=== PATIENT | female | born 1975 | race Two or more races ===

== ENCOUNTER → 2016-07-08 | Outpatient (CLI) | payer BC ==
--- NOTE | 2016-07-08 13:02 | RAD ---
DATE: 07/08/2016 EXAM: DIGITAL DIAGNOSTIC BILATERAL HISTORY: Follow-up right breast opacity, left breast screening COMPARISON: 07/05/2014, 06/24/2014 This study was interpreted with the benefit of Computerized Aided Detection (CAD). FINDINGS: The breasts are heterogeneously dense. No new or enlarging breast densities are seen. Minimal benign type calcifications are noted. No suspicious microcalcifications have developed. Benign-appearing lymph node type densities are noted in the axillary regions. IMPRESSION: There is no mammographic evidence of malignancy in either breast. BI-RADS CATEGORY: 2 BENIGN FINDING(S) RECOMMENDED FOLLOW-UP: 12M 12 MONTH FOLLOW-UP PQRS compliance statement: Patient information was entered into a reminder system with a target due date for the next mammogram. Mammography is a sensitive method for finding small breast cancers, but it does not detect them all and is not a substitute for careful clinical examination. A negative mammogram does not negate a clinically suspicious finding and should not result in delay in biopsying a clinically suspicious abnormality. "Our facility is accredited by the [employer] Mammography [employer]."
== END | disposition home or self-care (01) ==
LOC: KCIC MAMMO 11:30
PROVIDERS: ATTEND Obstetrics & Gynecology
DX: N63 Unspecified lump in breast (principal)
CPT/HCPCS: G0204; 77066

== ENCOUNTER → 2017-07-19 | Outpatient (CLI) | payer OTHER | END | disposition home or self-care (01) | LOC: KCIC MAMMO 09:45 | DX: Z12.31 Encounter for screening mammogram for malignant neoplasm of breast (principal) | CPT/HCPCS: 77067 ==

== ENCOUNTER → 2018-08-07 | Outpatient (CLI) | payer OTHER ==
--- NOTE | 2018-08-07 15:49 | KCIC ---
Bilateral digital screening mammograms: Reason for examination: Routine screening. Comparison is made to previous studies dated 07/19/2017 and 07/08/2016 Interpretation was made with the benefit of CAD. The skin and nipples show no abnormalities. No abnormal axillary lymph nodes are seen. The breast parenchyma is extremely dense. (Breast density: Category D.) There continues to be a small nodular parenchymal density medially in the right breast on cc view. There is also some asymmetric parenchymal density posterior superiorly in the left breast which is unchanged. There are no new dominant masses, suspicious calcifications or architectural distortion. Impression: No evidence of malignancy. Recommend routine screening. Your patient's mammogram demonstrates that she has dense breast tissue (breast density category C or D), which could hide abnormalities, and if she has other risk factors for breast cancer that have been identified, she might benefit from supplemental screening tests that may be suggested by you as her ordering physician. Dense breast tissue, in and of itself, is a relatively common condition. Therefore, this information is not provided to cause undue concern, but rather to raise your awareness and to promote discussion with your patient regarding the presence of other risk factors, in addition to dense breast tissue. Your patient's mammography results will be sent to her. BI-RAD Category 2: Benign. "Our facility is accredited by the [employer] Mammography [employer]." This patient's information has been entered into a reminder system for the patient to be notified with the results of her examination and a target date for the next mammogram. Electronically signed by: Mendy Duggan MD (08/07/2018 3:46 PM) [id number]
== END | disposition home or self-care (01) ==
LOC: KCIC MAMMO 11:51
PROVIDERS: ATTEND Obstetrics & Gynecology
DX: R92.2 Inconclusive mammogram (principal); Z12.31 Encounter for screening mammogram for malignant neoplasm of breast
CPT/HCPCS: 77067

== ENCOUNTER 2018-09-14 14:59 | Emergency (ER) | payer SELFPAY ==
[~2018-09-14] VITALS: Ht 160 cm; Wt 79.4 kg
[2018-09-14 15:20] VITALS: BP 145/65
--- NOTE | 2018-09-14 15:23 | PHYS DOC ---
Past Medical History Additional Information: non smoker Adult General Chief Complaint Chief Complaint: KNEE INJURY HPI HPI Patient is a 42 year old female presents with right knee pain on the medial size that has been ongoing intermittently for 2 weeks. This started happening after she was working on her yard. The patient has been wearing a brace at home, takes meloxicam daily for her tendinitis in her elbow but no other interventions were performed. The patient rates her pain as 5 out of 10. The character the pain is that it pops. Review of Systems Review of Systems Constitutional: Denies fever or chills [] Eyes: Denies change in visual acuity, redness, or eye pain [] HENT: Denies nasal congestion or sore throat [] Respiratory: Denies cough or shortness of breath [] Cardiovascular: No additional information not addressed in HPI [] GI: Denies abdominal pain, nausea, vomiting, bloody stools or diarrhea [] : Denies dysuria or hematuria [] Musculoskeletal: Denies back pain or joint pain with exception of knee pain. Integument: Denies rash or skin lesions [] Neurologic: Denies headache, focal weakness or sensory changes [] Endocrine: Denies polyuria or polydipsia [] Complete systems were reviewed and found to be within normal limits, except as documented in this note. Allergies Allergies Allergies Coded Allergies Type Severity Reaction Last Updated Verified pollen extracts Allergy Unknown 09/14/18 Yes Physical Exam Physical Exam Constitutional: Well developed, well nourished, no acute distress, non-toxic appearance. [] HENT: Normocephalic, atraumatic, bilateral external ears normal, oropharynx moist, no oral exudates, nose normal. [] Eyes: PERRLA, EOMI, conjunctiva normal, no discharge. [] Neck: Normal range of motion, no tenderness, supple, no stridor. [] Cardiovascular:Heart rate regular rhythm, no murmur [] Lungs & Thorax: Bilateral breath sounds clear to auscultation [] Abdomen: Bowel sounds normal, soft, no tenderness, no masses, no pulsatile masses. [] Skin: Warm, dry, no erythema, no rash. [] Back: No tenderness, no CVA tenderness. [] Extremities: No tenderness with exception of R knee, no cyanosis, no clubbing, ROM intact, no edema. [] Neurologic: Alert and oriented X 3, normal motor function, normal sensory function, no focal deficits noted. [] Psychologic: Affect normal, judgement normal, mood normal. [] Current Patient Data Vital Signs Vital Signs Date Time Temp Pulse Resp B/P (MAP) Pulse Ox O2 Delivery O2 Flow Rate FiO2 09/14/18 15:20 98.7 77 18 145/65 (91) 96 Room Air 98.7 EKG EKG [] Radiology/Procedures Radiology/Procedures []PATIENT: HENRIQUE QUINTEROSACCOUNT: [id number]#: [id number] : 1975 LOCATION: ER AGE: 42 SEX: F EXAM STATUS: REG ER ORD. PHYSICIAN: GURVINDER ESCOBAR APRN REASON: pain medial to patella from mowing grass today PROCEDURE: KNEE RIGHT 3V Three-view right knee study Clinical indications: Medial right knee pain extending to the patella after mowing grass today. FINDINGS: No acute fracture or dislocation or lytic process is evident. Mild degenerative joint space narrowing and spurring of the medial tibiofemoral joint compartment is seen. No significant right knee joint effusion is seen radiographically. IMPRESSION: No acute osseous abnormality. 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 Electronically signed by: Taiwo Resendez MD (09/14/2018 3:47 PM) [id number] Course & Med Decision Making Course & Med Decision Making Pertinent Labs and Imaging studies reviewed. (See chart for details) Will get an x-ray of the knee and then refer to orthopedics. Patient is agreeable. xray is negative. Will refer to orthopedics. Dragon Disclaimer Dragon Disclaimer This electronic medical record was generated, in whole or in part, using a voice recognition dictation system. Departure Departure Impression: Primary Impression: Knee pain, acute Disposition: 01 HOME, SELF-CARE Condition: STABLE Referrals: GURVINDER SWEET MD (PCP) FRITZ NG MD Patient Instructions: Knee Pain Additional Instructions: Please follow up with your primary care doctor as needed. Return to ER as needed. Follow up with ortho if pain continues for further workup. Problem Qualifiers Primary Impression: Knee pain, acute Laterality: right Qualified Codes: M25.561 - Pain in right knee GURVINDER ESCOBAR APRN Sep 14, 2018 15:23
--- NOTE | 2018-09-14 15:49 | RAD ---
Three-view right knee study Clinical indications: Medial right knee pain extending to the patella after mowing grass today. FINDINGS: No acute fracture or dislocation or lytic process is evident. Mild degenerative joint space narrowing and spurring of the medial tibiofemoral joint compartment is seen. No significant right knee joint effusion is seen radiographically. IMPRESSION: No acute osseous abnormality. 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 Electronically signed by: Taiwo Resendez MD (09/14/2018 3:47 PM) [id number]
== END 2018-09-14 16:10 | disposition home or self-care (01) ==
LOC: ER 14:59
DX: M25.561 Pain in right knee (principal); Z91.09 Other allergy status, other than to drugs and biological substances
CPT/HCPCS: 73562; 99284

== ENCOUNTER → 2018-10-05 | Outpatient (CLI) | payer OTHER ==
[2018-09-14 15:20] VITALS: BP 145/65
--- NOTE | 2018-10-06 08:09 | KCIC ---
Examination: Examination: MRI of the right knee without contrast HISTORY: History of right knee pain Technique: Multiplanar, multisequence MR imaging of the right knee was performed without contrast FINDINGS: The anterior cruciate ligament, posterior cruciate ligament appear intact. There is mild increased horizontal signal identified body and posterior horn of the medial meniscus likely horizontal degenerative cleavage tear. There is subtle blunting of the body of the medial meniscus probably a small radial tear with minimal medial extrusion of the medial meniscus. The lateral meniscus appears intact. The extensor mechanism is intact. The medial collateral ligament is intact. Lateral collateral ligamentous complex including the fibular collateral ligament, biceps femoris tendon, popliteus tendon appear intact. Small knee joint effusion is identified. The medial retinaculum, lateral retinaculum appear intact. There is deep fissuring of cartilage identified in the medial compartment. The medial retinaculum, lateral retinaculum appear intact. Moderate joint space loss identified in the medial compartment. There is mild joint space loss identified in the lateral compartment femoral compartments. Small knee joint effusion. IMPRESSION: 1. Increased horizontal ho signal identified in the medial meniscus likely horizontal cleavage tear with questionable subtle blunting of the body of the medial meniscus with minimal extrusion of the medial meniscus medially possibly a radial tear. 2. Grade II chondromalacia medial compartment. 3. Tricompartmental degenerative changes most in the medial compartment. 4. Small knee joint effusion. Electronically signed by: Heath Rush MD (10/06/2018 8:06 AM) [id number]
== END | disposition home or self-care (01) ==
LOC: KCIC MRI 15:56
PROVIDERS: ATTEND Orthopaedic Surgery
DX: M17.11 Unilateral primary osteoarthritis, right knee (principal); M94.261 Chondromalacia, right knee; M25.461 Effusion, right knee
CPT/HCPCS: 73721

== ENCOUNTER → 2019-11-23 | Outpatient (CLI) | payer OTHER ==
--- NOTE | 2019-11-23 16:24 | KCIC ---
Bilateral digital screening mammograms: Reason for examination: Routine screening. Comparison is made to previous studies dated back to 07/08/2016. Interpretation was made with the benefit of CAD. The skin and nipples show no abnormalities. No abnormal axillary lymph nodes are seen. The breast parenchyma is extremely dense. (Breast density: Category D.) There continues be a small nodule medially in the right breast seen just on cc view which is stable. There is however suggestion of a small nodular density located centrally at the 1:00 B position of the left breast. Further evaluation with coned compression views and ultrasound is recommended. There are no other dominant masses, suspicious calcifications or architectural distortion. Impression: Possible small nodular density developing at the 1:00 B position centrally in the left breast. Recommend further evaluation with coned compression views and ultrasound. Your patient's mammogram demonstrates that she has dense breast tissue (breast density category C or D), which could hide abnormalities, and if she has other risk factors for breast cancer that have been identified, she might benefit from supplemental screening tests that may be suggested by you as her ordering physician. Dense breast tissue, in and of itself, is a relatively common condition. Therefore, this information is not provided to cause undue concern, but rather to raise your awareness and to promote discussion with your patient regarding the presence of other risk factors, in addition to dense breast tissue. Your patient's mammography results will be sent to her. BI-RAD Category 0: Incomplete. Needs additional imaging evaluation. "Our facility is accredited by the [employer] Mammography Program." This patient's information has been entered into a reminder system for the patient to be notified with the results of her examination and a target date for the next mammogram. Electronically signed by: Mendy Duggan MD (11/23/2019 4:21 PM) [id number]
== END | disposition home or self-care (01) ==
LOC: KCIC MAMMO 10:38
PROVIDERS: ATTEND Obstetrics & Gynecology
DX: Z12.31 Encounter for screening mammogram for malignant neoplasm of breast (principal); N64.89 Other specified disorders of breast
CPT/HCPCS: 77067

== ENCOUNTER → 2019-12-27 | Outpatient (CLI) | payer OTHER ==
--- NOTE | 2019-12-27 13:57 | KCIC ---
EXAM: Left breast diagnostic mammogram; left breast sonogram. HISTORY: 44-year-old female presents for evaluation of nodularity within the left breast demonstrated on a mammogram dated 11/23/2019. TECHNIQUE: Spot compression views of the left breast are obtained. Sonographic imaging of the left breast targeted to the site of mammographic nodularity was also performed. COMPARISON: 11/23/2019 BREAST PARENCHYMAL DENSITY: Level D - Extremely dense. FINDINGS: The nodular density within the 1:00 position of the left breast is not conspicuous with the additional spot compression views. There is no convincing mass, architectural distortion or suspicious calcification. Sonographic imaging of the left breast demonstrates dense breast parenchyma and scattered fibrous cystic changes. There is a superimposed 5 mm benign fibrocystic lesion at the 3:00 retroareolar location. No suspicious lesion is seen. IMPRESSION: 1. No convincing persistent suspicious mammographic or sonographic finding within the left breast. 2. BI-RADS Category 2: Benign finding(s). RECOMMENDATION: Annual mammography is recommended. If your mammogram demonstrates that you have dense breast tissue, which could hide abnormalities, and if you have other risk factors for breast cancer that have been identified, you might benefit from supplemental screening tests that may be suggested by your ordering physician. Dense breast tissue, in and of itself, is a relatively common condition. This information is not provided to cause undue concern, but rather to raise your awareness and to promote discussion with your physician regarding the presence of other risk factors, in addition to dense breast tissue. A report of your mammography results will be sent to you and your physician. You should contact your physician if you have any questions or concerns regarding this report. Mammography is a sensitive method for finding small breast cancers, but it does not detect them all and is not a substitute for careful clinical examination. A negative mammogram does not negate a clinically suspicious finding and should not result in delay in biopsying a clinically suspicious abnormality. PQRS compliance statement - Patient information was entered into a reminder system with a target due date for the next mammogram. "Our facility is accredited by the [employer] Mammography [employer]." Electronically signed by: Rhea Vickers MD (12/27/2019 1:54 PM) [id number]
== END | disposition home or self-care (01) ==
LOC: KCIC MAMMO 12:57
PROVIDERS: ATTEND Family Medicine
DX: R92.8 Other abnormal and inconclusive findings on diagnostic imaging of breast (principal); N63.21 Unspecified lump in the left breast, upper outer quadrant
CPT/HCPCS: 76641; 77065